=== PATIENT | female | born 1990 | race Caucasian/White ===

== ENCOUNTER → 2017-05-10 | Outpatient (CLI) | payer BC, OTHER ==
[~2017-05-10] MED LIST: ACET-1256 PO; LEVO1IUD2 VAGRING
[2017-05-10 18:11] LABS: BLOOD UREA NITROGEN 11 mg/dl (7-18); CALCIUM 8.7 mg/dl (8.5-10.1); CARBON DIOXIDE 23 mmol/L (21-32); CREATININE 0.86 mg/dl (0.60-1.20); GLUCOSE 83 mg/dl (70-99); POTASSIUM 4.2 mmol/L (3.5-5.1); SODIUM 136 mmol/L (136-145)
== END | disposition home or self-care (01) ==
LOC: C.LABPBG 15:46
PROVIDERS: ATTEND Family Medicine
DX: E06.3 Autoimmune thyroiditis (principal); E55.9 Vitamin D deficiency, unspecified; F31.9 Bipolar disorder, unspecified

== ENCOUNTER 2019-01-13 09:37 | Observation (INO) ==
--- NOTE | 2019-01-10 08:42 | Anesthesiology Consultation ---
Date of Service January 10, 2019 Assessment & Plan (1) Encounter for pre-operative examination: Chart Review Chart Review: Acceptable Risk for Surgery and Patient NOT seen in Pre Admission Testing Consults Requested none History Surgery Operation Date: 01/13/19 10:50 Proposed Procedures p Bilateral Breast Reduction - Sarah Anton MD Height/Weight Height: 5 ft 3 in Weight: 68.039 kg Allergies Allergy/AdvReac Type Severity Reaction Status Date / Time No Known Allergies Allergy Unknown Verified 01/09/19 09:53 Medications Home Medications Medication Instructions Recorded Confirmed Last Taken oxycodone-acetaminophen 5 mg-325 1 tab PO Q4H PRN 3 Days #18 tab 01/08/19 01/09/19 Unknown mg tablet acetaminophen [Tylenol Extra 1,000 mg PO Q6H PRN 01/09/19 01/09/19 Unknown Strength] lactobacillus combination no.4 1 cell PO DAILY 01/09/19 01/09/19 Unknown [Probiotic] levonorgestrel [Mirena] 1 device INTRAUTERINE UD 01/09/19 01/09/19 Unknown Past Medical History Medical History Migraine HX Past Family History Family History Grandmother (Maternal) Family history of diabetes mellitus Past Surgical History Surgical History History of cholecystectomy History of tonsillectomy History of tooth extraction WISDOM TEETH Nausea and vomiting after administration of anesthetic agent Social History Smoking Status: Never smoker Do You Dip or Chew Tobacco: No Hx Alcohol Use: Yes Alcohol type: wine alcohol intake frequency: holidays/special occasions only Hx Substance Use: No Testing Laboratory Results Laboratory Tests 01/08/19 01/08/19 01/08/19 17:11 17:11 17:11 WBC 10.22 Hct 38.8 Plt Count 272 INR 1.1 Sodium 139 Potassium 4.1 BUN 14
[~2019-01-13 09:37] MED LIST changes: -ACET-1256 PO; -LEVO1IUD2 VAGRING; +LR 15ML/HR IV SCH
[2019-01-13] MEDS ORDERED: fentaNYL citrate 100 MCG/2 ML VIAL ONE (10:21)
[2019-01-13] MEDS ORDERED: MIDAZOLAM HCL 1 MG/ML 2ML VIAL ONE (10:21)
[2019-01-13] MEDS ORDERED: CEFAZOLIN 1,000 MG/7.5 ML IV PUSH IV ONE (10:22)
[2019-01-13] MEDS ORDERED: LIDOCAINE/EPINEPHRINE 1% 20 ML VIAL ONE (11:11)
[2019-01-13] MEDS ORDERED: BUPIVACAINE 0.25% 30 ML VIAL ONE (11:11)
--- NOTE | 2019-01-13 11:18 | History & Physical Bridge Note ---
Date of Service January 13, 2019 History & Physical Bridge Note I have examined the patient, reviewed the History & Physical and in the interval since the performance of the History & Physical I have noted the following changes of clinical significance: no changes noted Patient desires to be a B cup if possible present during marking
[2019-01-13] MEDS ORDERED: ACETAMINOPHEN 1000 MG/100 ML IV IV ONE (11:27)
[2019-01-13] MEDS ORDERED: PROPOFOL IV EMULSION 10 MG/ML 100 ML VIAL IV ONE (11:27)
[2019-01-13] MEDS ORDERED: HYDROmorphone INJ 2 MG/ML SYR/VIAL IV PRN (12:10)
[2019-01-13] MEDS ORDERED: PROMETHAZINE HCL 12.5 MG in SODIUM CHLORIDE 0.9% 50 ML IV PRN ×2 (12:10→15:51)
[2019-01-13] MEDS ORDERED: fentaNYL citrate 100 MCG/2 ML VIAL IV PRN (12:10)
[2019-01-13] MEDS ORDERED: DEXAMETHASONE SOD INJ 4 MG/ML VIAL IV PRN (12:10)
[2019-01-13] MEDS ORDERED: ATROPINE SULFATE 0.1 MG/ML 10ML SYR IV PRN (12:10)
[2019-01-13] MEDS ORDERED: ONDANSETRON INJ 2 MG/ML 2 ML VIAL IV PRN ×2 (12:10→15:51)
[2019-01-13] MEDS ORDERED: ePHEDrine sulfate 50 MG/ML AMP IV PRN (12:10)
[2019-01-13] MEDS ORDERED: METOCLOPRAMIDE HCL INJ 5 MG/ML 2 ML VIAL IV PRN (12:10)
[2019-01-13] MEDS ORDERED: METOCLOPRAMIDE HCL INJ 5 MG/ML 2 ML VIAL ONE (12:42)
[2019-01-13] MEDS ORDERED: GLYCOPYRROLATE 0.2 MG/ML VIAL ONE (12:42)
[2019-01-13] MEDS ORDERED: raNITIdine HCl 25 MG/ML VIAL IV ONE (12:42)
[2019-01-13] MEDS ORDERED: LIDOCAINE HCL 2% 2 ML VIAL/AMP(20MG/ML) INFIL ONE (12:42)
[2019-01-13] MEDS ORDERED: NEOSTIGMINE METHYLSULFATE 5 MG/5 ML SYR ONE (12:42)
[2019-01-13] MEDS ORDERED: PROPOFOL IV EMULSION 10 MG/ML 20 ML VIAL IV ONE ×2 (12:42→14:39)
[2019-01-13] MEDS ORDERED: ONDANSETRON INJ 2 MG/ML 2 ML VIAL ONE (12:42)
[2019-01-13] MEDS ORDERED: HYDROmorphone INJ 2 MG/ML SYR/VIAL ONE (12:42)
[2019-01-13] MEDS ORDERED: ROCURONIUM BROMIDE 10 MG/ML 5 ML VIAL ONE (12:42)
[2019-01-13] MEDS ORDERED: LARYING-O-JET KIT (LTA) ONE (15:03)
--- NOTE | 2019-01-13 15:36 | Post Operative Brief Note ---
Immediate Post Op Note v1 Date of Surgery January 13, 2019 Pre & Post Diagnosis Operation Date: 01/13/19 10:50 Pre-Op Diagnosis: Bilateral Symptomatic Macromastia Post-Op Diagnosis: Bilateral Symptomatic Macromastia Procedure Operation Date: 01/13/19 10:50 Actual Procedures p Bilateral Breast Reduction(Bilateral) - Sarah Anton MD Surgeon Sarah Anton MD Senior Software Engineer Radha Kate PA-C Estimated Blood Loss 75 Findings Consistent with Post-Op Diagnosis Drains Earl-Alejandra Drain (15fr. bard channel drain bilateral breasts) Anesthesia Type General
--- NOTE | 2019-01-13 15:36 | Operative Report ---
PG Post Operative Report Pre & Post Diagnosis Operation Date: 01/13/19 10:50 Pre-Op Diagnosis: Bilateral Symptomatic Macromastia Post-Op Diagnosis: Bilateral Symptomatic Macromastia Procedure Operation Date: 01/13/19 10:50 Actual Procedures p Bilateral Breast Reduction(Bilateral) - Sarah Anton MD Surgeon Sarah Anton MD Telephone Ad Taker Radha Kate PA-C Estimated Blood Loss 75 Findings Consistent with Post-Op Diagnosis Specimens left breast 410 g, right breast 414 g Drains WILFRID x2 Anesthesia Type General Complications none Indications back, neck and shoulder pain due to macromastia Description of Procedure The risks, benefits, and alternatives of the procedure were explained to the patient who agreed and signed consent. She was identified and marked in the preoperative holding area. She was brought to the operating room where she was positioned supine and placed under general anesthesia without incident. Surgical site was prepped and draped sterilely. A time-out procedure was performed. I began with the left side. Markings were reassessed and a 6 cm pedicle was marked. 1% lidocaine with epinephrine was used to anesthetize the planned incisions. A 38 mm cookie cutter was used to circumscribe the nipple-areolar complex. The previously marked 6 cm pedicle was incised using a 15 blade scalpel and deepithelized. I began with the medial dissection of the pedicle using electrocautery. Cautery was used to incise through dermis and breast parenchyma down to the chest wall, taking care not to undermine the pedicle during dissection. A similar procedure was undertaken on the lateral aspect of the pedicle again taking care not to undermine. Lastly, the pedicle was dissected out superiorly using electrocautery and this was carried down to the chest wall as well. I then began with excision of the medial breast tissue followed by lateral aspect of the breast tissue and surrounding keyhole incision. A 15 blade scalpel was used to make the inframammary fold incision and electrocautery was used to deepen the incision through dermis and breast parenchyma. Dissection was then carried superiorly to the level of the superior incision. Superior incision was then incised using a 15 blade scalpel and again dissected using electrocautery. This was undertaken laterally and then around the keyhole portion of the incision. Care was taken to leave some fat on the lateral pectoralis fascia in order to protect the T4 intercostal nerve. Hemostasis was achieved with electrocautery. The specimen was passed off in its entirety for weighing. Additional resection was undertaken from the superior flap in order to facilitate closure of the breast and to provide the best shape. The total resection weight of the left breast was 410 grams. The wound was irrigated with saline and hemostasis was achieved with electrocautery. 0.25% Marcaine plain was used to anesthetize the incisions as well as the pectoralis fascia. A 15 Uzbek Vaughn drain was brought out throu gh a separate stab incision. The nipple-areolar complex was brought into the keyhole using 2-0 Vicryl deep dermal suture. The wound was closed first in a lateral to mid breast direction and then medial to mid breast direction using 2-0 Vicryl deep dermal sutures. Vertical limb was also approximated using 2-0 Vicryl deep dermals and the nipple-areolar complex was inset using 2-0 Vicryl deep dermal sutures. Next, the superficial dermal layer was closed using 2-0 PDO running Quill suture along the inframammary fold and 3-0 PDS interrupted dermal sutures along the vertical limb and nipple-areolar complex. Lastly 3-0 Monocryl running subcuticular suture was placed. A similar procedure was undertaken on the right side with maximal excision weight of 414 grams. Breasts were symmetric and nipple-areolar complexes were viable bilaterally following wound closure. Dermabond Prineo was applied along the inframammary fold and vertical limb and Dermabond was placed around the nipple-areolar complex. Dry dressings and a surgical bra were placed. The patient was awakened and transferred to recovery room in satisfactory condition. Radha Kate PA-C was present and scrubbed throughout the procedure and was instrumental in providing retraction during dissection of the pedicle and assisting in wound closure. I attest to the content of the Intraoperative Record and any orders documented therein. Any exceptions are noted below.
[2019-01-13] MEDS ORDERED: DiphenhydrAMINE HCL 50 MG/ML VIAL IV PRN (15:51)
[2019-01-13] MEDS ORDERED: OXAZEPAM 10 MG CAPSULE PO PRN (15:51)
[2019-01-13] MEDS ORDERED: ACETAMINOPHEN 325 MG TAB PO PRN (15:51)
[2019-01-13] MEDS ORDERED: MoRPHine SULFATE 2 MG/ML CARP IV PRN (15:51)
[2019-01-13] MEDS ORDERED: MoRPHine SULFATE 10 MG/ML CARP/VIAL IV PRN (15:51)
[2019-01-13] MEDS ORDERED: MoRPHine SULFATE 4 MG/ML 1 ML CARP\\VIAL IV PRN ×2 (15:51→17:30)
[2019-01-13] MEDS ORDERED: OXYCODONE/ACETAMINOPHEN 5mg/325mg TAB PO PRN (15:51)
--- NOTE | 2019-01-13 16:20 | Anesthesiology Progress Note ---
Date of Service January 13, 2019 Anesthesia Post Procedure Vital Signs Vital Signs: Temp Pulse Pulse Resp BP Pulse Ox 01/13/19 16:09 99 H 16 97/70 L 100 01/13/19 16:00 80 12 118/59 L 100 01/13/19 15:51 37 C 77 12 139/69 100 01/13/19 10:10 37.4 C 87 16 130/80 100 Transfer of Care Handoff Completed per policy Notes Mental Status: alert / awake / arousable and participated in evaluation Patient Amnestic to Procedure: Yes Nausea / Vomiting: adequately controlled Pain: adequately controlled Airway Patency, RR, SpO2: stable & adequate BP & HR: stable & adequate Hydration State: stable & adequate Anesthetic Complications: no major complications apparent and Pt Satisfied with anesthetic care
[2019-01-13] MEDS ORDERED: NON-FORMULARY MEDICATION (Levonorgestrel [Mirena] 1 EA) IU SCH (17:26)
[2019-01-13] MEDS: D5W AND 1/2NSS + 20MEQ KCL 20 MEQ/1,000 ML BAG IV SCH (18:43)
[2019-01-13] MEDS: OXYCODONE/ACETAMINOPHEN 5mg/325mg TAB PO PRN (18:48)
[2019-01-13] MEDS: CEFAZOLIN 2000MG 2,000 MG/15 ML SYR IV SCH (20:01)
[2019-01-14] MEDS: OXYCODONE/ACETAMINOPHEN 5mg/325mg TAB PO PRN (03:14)
[2019-01-14] MEDS: CEFAZOLIN 2000MG 2,000 MG/15 ML SYR IV SCH (03:15)
[2019-01-14] MEDS: D5W AND 1/2NSS + 20MEQ KCL 20 MEQ/1,000 ML BAG IV SCH (05:37)
--- NOTE | 2019-01-14 08:55 | Anesthesiology Progress Note ---
Date of Service January 14, 2019 Anesthesia Post Procedure Vital Signs Vital Signs: Temp Pulse Pulse Pulse Resp BP BP 01/14/19 07:36 36.9 C 74 16 103/65 01/14/19 03:07 36.9 C 90 16 102/65 01/13/19 22:58 37.1 C 81 18 106/67 01/13/19 20:32 36.6 C 86 18 108/65 01/13/19 19:25 36.5 C 71 18 102/65 01/13/19 18:56 36.7 C 72 18 111/65 01/13/19 18:17 36.5 C 70 18 110/61 01/13/19 17:25 37.1 C 62 16 105/63 01/13/19 17:04 37.5 C 75 16 124/60 01/13/19 16:47 37.5 C 75 16 123/54 L 01/13/19 16:37 37.5 C 88 16 109/61 01/13/19 16:28 37.5 C 87 16 111/64 01/13/19 16:20 83 16 119/53 L 01/13/19 16:09 99 H 16 97/70 L 01/13/19 16:00 80 12 118/59 L 01/13/19 15:51 37 C 77 12 139/69 01/13/19 10:10 37.4 C 87 16 130/80 Pulse Ox 01/14/19 07:36 97 01/14/19 03:07 99 01/13/19 22:58 98 01/13/19 20:32 99 01/13/19 19:25 100 01/13/19 18:56 98 01/13/19 18:17 97 01/13/19 17:25 96 01/13/19 17:04 98 01/13/19 16:47 98 01/13/19 16:37 99 01/13/19 16:28 98 01/13/19 16:20 98 01/13/19 16:09 100 01/13/19 16:00 100 01/13/19 15:51 100 01/13/19 10:10 100 Notes Mental Status: alert / awake / arousable and participated in evaluation Patient Amnestic to Procedure: Yes Nausea / Vomiting: adequately controlled Pain: adequately controlled Airway Patency, RR, SpO2: stable & adequate BP & HR: stable & adequate Hydration State: stable & adequate Anesthetic Complications: no major complications apparent and Pt Satisfied with anesthetic care
[2019-01-14] MEDS ORDERED: MULTIVITAMIN TAB PO SCH (09:00)
[2019-01-14] MEDS ORDERED: LACTOBACILLUS ACIDOPHILUS (FLORANEX) TAB PO SCH (09:00)
--- NOTE | 2019-01-14 10:06 | Surgery Progress Note ---
Date of Service January 14, 2019 Assessment & Plan (1) S/P bilateral breast reduction: POD #1 s/p Bilateral Breast Reduction. Patient is doing very well, pain well controlled with PO pain medication. Nausea has resolved. Patient voiding on own and ambulating throughout room without issue. She is tolerating a regular diet. WILFRID drains x2 removed today at bedside without issue. PO Zofran transmitted to patient's pharmacy in case of nausea/vomiting at home. She is aware that she is not allowed to shower and she is to keep surgical dressings and bra in place. She is to keep activity light. She will follow-up in the office tomorrow. Subjective Sarah is resting comfortably in bed as I entered the room. She reports that she got some sleep overnight. Her pain is well controlled with PO pain medication. She states that she did have some nausea in the immediate post- operative period, but that has since resolved. She is very happy with her breast size. She states that her symptoms of neck pain, back pain, and shoulder pain have improved greatly since surgery. Physical Exam Physical Exam: On physical exam- surgical bra in place, surgical dressings in place and they are clean, dry. WILFRID drains x [address] (serosang drainage). Nipples are pink, viable. Incisions are clean, dry. No evidence of infection. WILFRID drains removed at bedside without issue. Optifoam dressings x 2 placed. Surgical dressings were reinforced and surgical bra attached. Constitutional: WD/WN, vitals as above well developed and well nourished; no acute distress Results & Data Vital Signs (Past 12 Hours) Vital Signs Temp Pulse Resp BP BP Pulse Ox 01/14/19 07:36 36.9 C 74 16 103/65 97 01/14/19 03:07 36.9 C 90 16 102/65 99 01/13/19 22:58 37.1 C 81 18 106/67 98 PG Care Time/CCT Total # of Minutes Spent Total Time Spent with Patient: Total time spent is greater than 50% in coordination of care (as documented) at patient's floor/unit and/or counseling patient:
--- NOTE | 2019-01-15 09:47 | Discharge Summary ---
Date of Service January 15, 2019 Admission HPI Per Admitting Provider Please see admission History and Physical. Admission Exam Per Admitting Provider Please see admission History and Physical. Principal Diagnosis Bilateral Symptomatic Macromastia Discharge Exam On physical exam- surgical bra in place, surgical dressings in place and they are clean, dry. WILFRID drains x [address] (serosang drainage). Nipples are pink, viable. Incisions are clean, dry. No evidence of infection. WILFRID drains removed at bedside without issue. Optifoam dressings x 2 placed. Surgical dressings were reinforced and surgical bra attached. Constitutional WD/WN, vitals as above well developed and well nourished; no acute distress Discharge Data Allergies Allergy/AdvReac Type Severity Reaction Status Date / Time No Known Allergies Allergy Unknown Verified 01/13/19 10:07 Procedures Performed Operation Date: 01/13/19 10:50 Actual Procedures p Bilateral Breast Reduction(Bilateral) - Sarah Anton MD Hospital Course (1) S/P bilateral breast reduction: Sarah is a 43-year-old female with Bilateral Symptomatic Macromastia. She was taken to the OR and underwent Bilateral Breast Reduction. There were no intraoperative complications. She was taken to recovery and transferred to med/surg for observation. On POD #1, she was feeling a bit sore, but overall doing well. She did experience some post-op nausea, but that had resolved by the following morning. She was tolerating a regular diet, voiding on her own, and ambulating without issue. On exam, her vitals were stable. Her incisions were clean, dry, and intact. Her nipples were pink, viable. Her drains were removed without issue at bedside and Optifoam dressings were placed. She was discharged to home with instructions to follow-up in the office in 1 day. She is aware that she is not allowed to shower and she is to keep surgical dressings and bra in place. All questions were answered. Total Time Total Time Spent Total Time Spent (In Minutes): 5 Discharge Plan Discharge Items Patient Disposition: Home - Self-Care Reason For Visit: Bilateral Symptomatic Macromastia Discharge Diagnosis: Bilateral Symptomatic Macromastia Activity: As commented below Non-emergency contact: Surgeon Call non-emergency contact if: you have any medication questions, your pain is not controlled, your temperature is above 101.5, your wound has increased redness and your wound has increased drainage Follow-up/Referrals: PCP,NO [Primary Care Provider] - Diet: Regular Addtl Attending Provider Instructions: ACTIVITY RECOMMENDATIONS: __Normal activities _X_No bending, lifting or straining __No driving _X_Driving allowed when you are off pain medications _X_Walking permitted __You should have help at home for ___ days DRESSINGS: __No dressings required _X_Keep dressings dry/in place until first office visit __Remove dressings ___ and leave dressings off __Apply ice ___ days __Remove dressings and reapply garment __Apply antibiotic ointment (Bacitracin, Neosporin, etc) to wounds 3-4 times/day for 10 days BATHING: _X_Keep dressings dry _X_Sponge bathing permitted- Please keep surgical dressings dry. __Showering permitted _X_No swimming, hot tubs or soaking in a tub MEDICATIONS: Resume previous medications unless instructed otherwise by your surgeon. _X_Do not use aspirin, Motrin, Advil or Ibuprofen as these may promote bleeding. Please use Tylenol. _X_Prescription(s) provided: You were given a prescription for pain medication at your last office visit. SPECIAL CARE INSTRUCTIONS: * It is normal to have a mild fever after surgery. If your temperature is higher than 101.5 degrees F, please call the office at [phone]. * Constipation is a typical side effect of pain medication. An [id number]-hqsoafy stool softener will help relieve this. * Leaking around surgical drains may occur and should not cause concern. Sometimes these drains become clogged. If this happens, remove the bulb and milk the clot out of the tube, then replace the bulb. * Drainage from wounds after liposuction is normal and should be expected. Garments will become soiled. You should protect furniture and bedding. This drainage should mostly subside within 2-3 days. Leave garments in place unless instructed to remove them. * If you have unusual drainage from a wound or are concerned you have an infection or have any questions or concerns, please call the office at [phone]. FOLLOW UP VISIT: If not already scheduled, please call the office, , when you return home after surgery to schedule an appointment to be seen in _1__ day. Pending Studies at Discharge: Yes Studies:: Pathology report. Stand-Alone Forms: My [facility] Medications and DC Order Prescriptions: New ondansetron HCl [Zofran] 4 mg tablet 4 mg PO Q6H PRN (Reason: nausea and vomiting) 3 Days Qty: 12 RF: 0 Continued Probiotic 3 billion cell Capsule 1 cell PO DAILY RF: 0 Mirena 20 mcg/24 hours (5 yrs) 52 mg Intrauterine Device 1 device INTRAUTERINE UD RF: 0 Discharge Orders: Discharge Order (Routine); Ordered 01/14/19 Ordered By: Radha Manley/Other Patient Handouts: Surgery Prevent DVT After, Reduction Breast Dc Admission Data Admit Date/Time: 01/13/19 15:51 Attending Provider: Sarah Anton Admit Provider: Sarah Anton Primary Care Provider: PCP,NO Other Interventions: Discharge Summary Assessment (RN) Last Done: 01/14/19 10:44 DC Date/Time DO NOT enter until pt leaves facility: 01/14/19 11:11 Supervising Physician Co-Signing Physician Notes Dr. Sarah Anton
== END 2019-01-14 11:11 | disposition home or self-care (01) ==
LOC: ASU 09:37 → 3W 09:37